=== PATIENT | female | born 1950 | race Caucasian/White ===

== ENCOUNTER → 2024-12-17 10:53 | Outpatient (REF) | payer OTHER, SELFPAY | LOC: RAD 10:53 | PROVIDERS: ATTENDING PHYSICIAN Physician Assistant Medical; FAMILY PHYSICIAN Family Medicine | DX: J20.9 Acute bronchitis, unspecified (principal); R05.1 Acute cough | CPT/HCPCS: 71046 ==

== ENCOUNTER → 2025-07-08 04:00 | Outpatient (REF) | payer OTHER, SELFPAY | LOC: DHSLP 04:00 | PROVIDERS: ATTENDING PHYSICIAN Internal Medicine; FAMILY PHYSICIAN Family Medicine | DX: G47.33 Obstructive sleep apnea (adult) (pediatric) (principal); R09.02 Hypoxemia | CPT/HCPCS: 95800 ==